=== PATIENT | female | born 1950 | race Caucasian/White ===

== ENCOUNTER 2018-10-29 12:57 | Emergency (ER) | payer MEDICARE ==
[2018-10-29] MEDS ORDERED: 0.9 % SODIUM CHLORIDE 1,000 ML IV STA (13:08)
[2018-10-29] MEDS ORDERED: ONDANSETRON HCL/PF 4 MG/ 2ML VIAL IVP STA (13:18)
--- NOTE | 2018-10-29 13:18 | ED Physician Documentation ---
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 pt presents to the ED via POV c/o n/v/d since yesterday. pt reports 4 episodes of loose stools today and becomes transiently dizzy when standing. pt reports intermittent fever/chills. denies other symptoms or complaints pt denies current chest pain, dyspnea, syncope/near syncope, headache, dizziness, visual disturbances, fever/chills, rash, sick contacts, dysuria, trauma. melena or hematochezia, bleeding or easy bruising, bladder function, no recent weight loss/gain, anxiety or depression. ROS Negative unless otherwise specified. - ROS CONST: fever EYES/ENT: denies: sore throat, nasal drainage, nasal congestion CVS/RESP: denies: chest pain, shortness of breath, cough GI/: abdominal pain (generalized). denies: problems urinating, vomiting, nausea, diarrhea MS/SKIN/LYMPH: none NEURO/PSYCH: denies: headache, fainting - PAST HX Past History: hypertension, other (Gastric Reflux) Other History: diabetes Type 2 Surgeries/Procedures: cholecystectomy, hysterectomy (appendectomy) Allergies/Adverse Reactions: Allergies Allergy/AdvReac Type Severity Reaction Status Date / Time contrast dye Allergy Uncoded 10/29/18 13:12 Home Medications: Ambulatory Orders Medication Instructions Recorded Aspirin [Katalina] 81 mg PO D 04/05/15 Atorvastatin Calcium [Lipitor] 40 mg PO D 04/05/15 Metformin HCl [Glucophage] 500 mg PO D 04/05/15 Ranitidine HCl [Zantac] 150 mg PO D 04/05/15 Lisinopril 20 mg PO DAILY 10/29/18 - SOCIAL HX Smoking History: non-smoker Alcohol Use: none Drug Use: none - FAMILY HX Family History: No - VITAL SIGNS Vital Signs: Vital Signs Temp Pulse Resp BP Pulse Ox 97.5 F L 97 H 18 152/98 96 10/29/18 13:10/29/18 13:01 10/29/18 13:01 10/29/18 13:10/29/18 13:01 - REVIEWED ASSESSMENTS Nursing Assessment Reviewed: Yes Vitals Reviewed: Yes Progress - EKG/XRAY/CT EKG: NSR (interp by me ) Comments: Rate 77. no st depression/elevation. normal intervals/axis/QRS. ED Results Lab/Radiology - Orders Orders: ED Orders Category Date Time Status Place IV Lock 1T Care 10/29/18 13:08 Ordered CBC/PLATELET/DIFF Stat Lab 10/29/18 13:08 Ordered CMP [CMP] Stat Lab 10/29/18 13:08 Ordered 0.9 % Sodium Chloride [Normal Saline] 1,000 ml Med 10/29/18 13:08 Ordered IV NOW General Adult Physical Exam - PHYSICAL EXAM GENERAL APPEARANCE: no distress EENT: eye inspection normal, ENT inspection normal, pharynx normal, no signs of dehydration, TERE, no nystagmus, TM's nml NECK: normal inspection, thyroid normal RESPIRATORY: no resp distress, chest non-tender, breath sounds normal. No: wheezes, rales, rhonchi CVS: reg rate & rhythm, heart sounds normal, equal pulses, no murmur, no gallop, PMI nml, no JVD, no friction rub. No: tachycardia ABDOMEN: soft, no organomegaly, normal bowel sounds, no abdominal bruit, no distension. 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 Rest. Increase fluids like gatoraid or other electrolyte replacement. Ibuprofen 600 mg every 6 hours for fever/inflammation Tylenol 650 mg every 4-6 hours for pain/fever take multivitamin daily use cool humidifier in room you are sleeping. you may sit in bathroom outside hot shower to inhale the steam to soothe lungs seek medical care immediately if difficult to wake, difficulty breathing, feeling faint or fainting, increased rash, chest pain, shortness of breath, or fever not controlled by tylenol/motrin or any concern. follow up with primary care next week or before if not improving as expected. PLEASE UNDERSTAND THAT THIS IS AN EMERGENCY EVALUATION FOR YOUR COMPLAINT AND BY NATURE IS LIMITED AND NOT A SUBSTITUTE FOR ONGOING MEDICAL CARE. EVEN THOUGH TEST RESULTS AND TREATMENT PLAN WERE EXPLAINED THERE MAY BE A NEED FOR ADDITIONAL TESTING TO FULLY DETERMINE THE EXTENT OF YOUR ILLNESS/INJURY/OR CONCERN SO YOU SHOULD CONTACT AND OR ESTABLISH WITH A PRIMARY CARE PROVIDER (OR REFERRAL DOCTOR IF APPLICABLE) FOR AN APPOINTMENT SOON POSSIBLE Condition: Good Disposition: 01 HOME, SELF-CARE Decision to Admit: NO Date of Decison to Admit: 10/29/18 Decision Time: 14:30
[2018-10-29 14:02] LABS: BASOPHILS % 0.5 (0.0-1.5); EOSINOPHILS % 1.6 % (0.0-6.8); MEAN CORPUSCULAR HEMOGLOBIN 28.9 pg (28.0-34.0); MONOCYTES % 4.4 % (0.0-11.0); NEUTROPHILS # 8.2 # k/uL (1.4-7.7)
[2018-10-29 14:14] LABS: eGFR (Non-African) > 60
[2018-10-29 15:08] VITALS: BP 152/80
[2018-10-29 17:34] LABS: APPEARANCE,URINE CLEAR (CLEAR); COLOR,URINE YELLOW (YELLOW); OCCULT BLOOD,URINE TRACE-LYSED (NEGATIVE); PH URINE 5.5 (5.0 - 8.0); UROBILINOGEN URINE 0.2 Eu (0.2-1.0)
== END 2018-10-29 15:05 | disposition home or self-care (01) ==
LOC: ED 12:57
DX: K52.9 Noninfective gastroenteritis and colitis, unspecified (principal)
CPT/HCPCS: 36415; 80053; 81002; 85025; 93005; 96374; 99282; 99284; J2405; J7030; S1016

== ENCOUNTER 2018-11-01 18:45 | Emergency (ER) | payer MEDICARE ==
[2018-11-01] MEDS ORDERED: ASPIRIN 81 MG CHEW TAB PO ONE (18:48)
--- NOTE | 2018-11-01 18:59 | ED Physician Documentation ---
Chest Pain - HISTORIAN Historian: patient - HPI Stated Complaint: pain in upper back. 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 Pain is 6/10 aching and constant. pt denies dyspnea, diaphoresis, nausea, syncope, or chest pain. pt denies current chest pain, dyspnea, syncope/near syncope, headache, dizziness, visual disturbances, n/v/d, fever/chills, rash, sick contacts, dysuria, trauma. melena or hematochezia, bleeding or easy bruising, change in bowel or bladder function, no recent weight loss/gain, anxiety or depression. ROS Negative unless otherwise specified. Last known Well Date: 11/01/18 Last Known Well Time: 18:00 Context: rest - ROS CONST: none - PAST HX NV risk factors: hyperlipidemia (OA) Surgeries/Procedures: cholecysectomy, appendectomy, hysterectomy Allergies/Adverse Reactions: Allergies Allergy/AdvReac Type Severity Reaction Status Date / Time contrast dye Allergy Severe Anaphylaxis Uncoded 11/01/18 20:07 Home Medications: Ambulatory Orders Medication Instructions Recorded Aspirin [Katalina] 81 mg PO D 04/05/15 Atorvastatin Calcium [Lipitor] 40 mg PO D 04/05/15 Metformin HCl [Glucophage] 500 mg PO D 04/05/15 Ranitidine HCl [Zantac] 150 mg PO D 04/05/15 Lisinopril 20 mg PO DAILY 10/29/18 - SOCIAL HX Smoking History: chew Alcohol Use: none Drug Use: none - FAMILY HX Family HX: none - VITAL SIGNS Vital Signs: Vital Signs Temp Pulse Resp BP Pulse Ox 152/80 10/29/18 15:05 - REVIEWED ASSESSMENTS Nursing Assessment Reviewed: Yes Vitals Reviewed: Yes Progress - Progress Progress: Report Submission Date: Nov 01, 2018 7:30:32 PM MOBILE UNIT ASSISTANT Patient Study Name: JAVIER CONNER Date: Nov 01, 2018 7:05:35 PM MOBILE UNIT ASSISTANT Modality Type: DX Gender: F Description: CHEST : 46 Institution: [facility] Physician: KAHLIL LINO Chest, AP portable History: Chest pain Findings: No infiltrate, effusion or pneumothorax is present. Heart size, mediastinum and pulmonary vascularity are normal. Impression: No active pulmonary disease. Electronically signed on Nov 01, 2018 7:30:32 PM MOBILE UNIT ASSISTANT by: Darryl Alejo Chest Pain Physical Exam - EXAM General Appearance: no acute distress, alert EENT: eye inspection normal, ENT inspection normal, pharynx normal, no signs of dehydration, TERE, no nystagmus, TM's nml Neck: nml inspection, no carotid bruit Respiratory: no resp. distress, chest non-tender, nml breath sounds. No: wheezes, rales, rhonchi CVS: reg. 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 ) Discharge Clincal Impression: Back pain Qualifiers: Back pain location: back pain in unspecified location Chronicity: chronic Back pain laterality: unspecified Qualified Code(s): M54.9 - Dorsalgia, unspecified Referrals: Henry Jeronimo MD [Primary Care Provider] - 2 Days Additional Instructions: Flexeril 10 mg Take 1/2 to one tab every 8 hours as needed for muscle spasm. do not drink alcohol or drive with this medication. Ibuprofen 600 mg every 6 hours for pain/inflammation. Rest. seek medical care immediately if difficult to wake, difficulty breathing, feeling faint or fainting, increased rash, chest pain, shortness of breath, or fever not controlled by tylenol/motrin or any concern. follow up with primary care next week or before if not improving as expected. PLEASE UNDERSTAND THAT THIS IS AN EMERGENCY EVALUATION FOR YOUR COMPLAINT AND BY NATURE IS LIMITED AND NOT A SUBSTITUTE FOR ONGOING MEDICAL CARE. EVEN THOUGH TEST RESULTS AND TREATMENT PLAN WERE EXPLAINED THERE MAY BE A NEED FOR ADDITIONAL TESTING TO FULLY DETERMINE THE EXTENT OF YOUR ILLNESS/INJURY/OR CONCERN SO YOU SHOULD CONTACT AND OR ESTABLISH WITH A PRIMARY CARE PROVIDER (OR REFERRAL DOCTOR IF APPLICABLE) FOR AN APPOINTMENT SOON POSSIBLE Condition: Good Decision to Admit: NO Date of Decison to Admit: 11/01/18 Decision Time: 20:07
--- NOTE | 2018-11-01 19:46 | Diagnostic Imaging Report ---
KAHLIL LINO [facility] [address] [facility] [address] [address] Report Submission Date: Nov 01, 2018 7:30:32 PM GRINDING MACHINE OPERATOR PORTABLE Patient Study Name: JAVIER CONNER Date: Nov 01, 2018 7:05:35 PM GRINDING MACHINE OPERATOR PORTABLE Modality Type: DX Gender: F Description: CHEST : 46 Institution: [facility] Physician: KAHLIL LINO Chest, AP portable History: Chest pain Findings: No infiltrate, effusion or pneumothorax is present. Heart size, mediastinum and pulmonary vascularity are normal. Impression: No active pulmonary disease. Electronically signed on Nov 01, 2018 7:30:32 PM GRINDING MACHINE OPERATOR PORTABLE by: Darryl HASSAN
[2018-11-01] MEDS ORDERED: KETOROLAC TROMETHAMINE 60 MG/2 ML VIAL IVP STA (20:08)
[2018-11-01] MEDS ORDERED: ORPHENADRINE CITRATE 60 MG/2 ML ML IV STA (20:09)
[2018-11-01 21:04] VITALS: BP 163/81
[2018-11-02 07:10] LABS: eGFR (Non-African) > 60
[2018-11-02 07:11] LABS: BASOPHILS % 0.5 (0.0-1.5); EOSINOPHILS % 3.3 % (0.0-6.8); MEAN CORPUSCULAR HEMOGLOBIN 28.8 pg (28.0-34.0); MONOCYTES % 5.1 % (0.0-11.0); NEUTROPHILS # 5.2 # k/uL (1.4-7.7)
[2018-11-02 07:29] LABS: APPEARANCE,URINE CLEAR (CLEAR); COLOR,URINE YELLOW (YELLOW); OCCULT BLOOD,URINE NEGATIVE (NEGATIVE); PH URINE 7.5 (5.0 - 8.0)
== END 2018-11-01 20:29 ==
LOC: ED 18:45
DX: M54.9 Dorsalgia, unspecified (principal)
CPT/HCPCS: 36415; 71045; 80053; 81002; 84484; 85025; 93005; 96374; 96375; 99283; 99285; J1885; J2360; S1016